=== PATIENT | male | born 1965 | race Caucasian/White ===

== ENCOUNTER 2016-07-27 15:37 | Emergency (ER) | payer MEDICAID, OTHER ==
[2016-07-27 15:49] VITALS: RESP 16; TEMP 97.9
--- NOTE | 2016-07-27 17:13 | EDPHY ---
H & P Time Seen by Provider: 07/27/16 17:03 HPI/ROS: CHIEF COMPLAINT: Right buttock pain x2 months HISTORY OF PRESENT ILLNESS: 50-year-old male complaining of atraumatic right buttock pain with right lower extremity radiculopathy x2 months. Occurs intermittently. No foot drop. No incontinence. No retention. No saddle anesthesia. No fever or chills. No IV drug use. No recent surgeries. No medical evaluation. No urinary complaints. No abdominal pain. No fever no chills no flu-like symptoms. PRIMARY CARE PROVIDER: No primary care provider REVIEW OF SYSTEMS: A ten point review of systems was performed and is negative with the exception of the items mentioned in the HPI PAST MEDICAL & SURGICAL HISTORY: No pertinent medical or surgical history SOCIAL HISTORY: nonsmoker no drug use PHYSICAL EXAM (Prior to examination, patient consented to physical exam, hands were washed and my usual and customary physical exam procedures followed) 1) GENERAL: Well-developed, well-nourished, alert and oriented. Appears to be in no acute distress. 2) HEAD: Normocephalic, atraumatic 3) HEENT: Pupils equal, round, reactive to light bilaterally. Sclera anicteric. 4) NECK: Full range of motion, no meningeal signs. 5) LUNGS: Clear auscultation bilaterally, no wheezes, no rhonchi, no retractions. 6) HEART: Regular rate and rhythm, no murmur, no heave, no gallop. 7) ABDOMEN: No guarding, no rebound, no focal tenderness, negative McBurney's, negative Patel's, negative Rovsing's, negative peritoneal sign, 8) MUSCULOSKELETAL: Moving all extremities, no focal areas of tenderness, no obvious trauma. No peripheral edema or discoloration. 9) BACK: . No CVA tenderness, no midline vertebral tenderness, no fluctuance, no step-off, no obvious trauma, no visual or palpable abnormality. Patella, Achilles reflexes intact to bilateral strength 5/5. Positive straight leg lift test on the right to approximately 20 degrees. 10) SKIN: No rash, no petechiae. 11) NEURO: Awake, alert, and oriented to person, place and time. Answers questions appropriately. There were no obvious focal neurologic abnormalities. No cerebellar dysfunction. Normal steady gait. Upper and lower extremities bilaterally with strength 5 / 5, reflexes 2+.. DIFFERENTIAL DIAGNOSIS: In no particular order, including but not limited to, fracture, sprain/strain, cauda equina, spinal infectious etiology, piriformis syndrome MEDICAL DECISION MAKING Lower index of suspicion for cauda equina, epidural abscess, epidural hematoma, lumbar myositis, diskitis, as the patient is neurologically intact in the lower extremities, has patella and Achilles reflexes intact and equal bilaterally, has no neurologic deficits, no incontinence, no retention, no midline pain, no fluctuance, afebrile, no flulike symptoms. Pain may be secondary to muscular strain, may be secondary to discogenic etiology. At this point I do not identify definitive indication for emergent MRI, however patient may necessitate this on an outpatient basis. I have recommended he establish primary care. Started patient on Medrol Dosepak, NSAIDs, NSAID precautions and steroid precautions provided. Patient given acute back pain precautions. Patient verbalizes understanding of discharge instructions. I believe them be competent decision-makers. All questions and concerns have been addressed by me. Ample opportunity for questions have been provided . The patient understands that this diagnosis is provisional and can never be 100% accurate. Usual and customary warnings were given concerning the clinical impression and all the patient's questions were answered. The patient was instructed to return to the emergency department should her symptoms worsen or return, or develop any new symptoms, otherwise to followup as directed in discharge instructions. Smoking Status: Never smoked Constitutional: Initial Vital Signs Temperature (C) 36.6 C 07/27/16 15:45 Heart Rate 63 07/27/16 15:45 Respiratory Rate 16 07/27/16 15:45 Blood Pressure 134/77 H 07/27/16 15:45 O2 Sat (%) 98 07/27/16 15:45 O2 Delivery Mode Room Air Allergies/Adverse Reactions: No Known Allergies Allergy (Unverified 07/27/16 15:49) Home Medications: Medication Instructions Recorded Ibuprofen [Motrin (*)] 800 mg PO Q6 #15 tab 07/27/16 methylPREDNISolone [Medrol Dose 4 mg PO DAILY #1 ea 07/27/16 Yordan] MDM/Departure - Depart Disposition: Home, Routine, Self-Care Clinical Impression: Sciatic nerve pain Qualifiers: Laterality: right Qualified Code(s): M54.31 - Sciatica, right side Condition: Good Instructions: Lumbar Radiculopathy (ED), Sciatica (ED), Piriformis Syndrome (ED ) Additional Instructions: Seek medical attention if you develop new or worsening pain, if you develop bladder or bowel dysfunction, numbness around your perineum, foot drop, or any other symptoms that concern you. Prescriptions: Ibuprofen [Motrin (*)] 800 mg PO Q6 #15 tab methylPREDNISolone [Medrol Dose Yordan] 4 mg PO DAILY #1 ea Referrals: Fei Blackburn MD [Medical Doctor] - 2-3 days, call for appt.
[2016-07-27 17:23] VITALS: BP 132/71; PULSE 74; O2SAT 96
== END 2016-07-27 17:23 | disposition home or self-care (01) ==
DX: M54.31 Sciatica, right side (principal)